=== PATIENT | male | born 1985 ===

== ENCOUNTER 2023-01-12 18:35 | Emergency (ER) | payer OTHER, SELFPAY ==
[2023-01-12 18:43] VITALS: BP 179/108; PULSE 80; RESP 18; TEMP 36.4; O2SAT 99; BMI 35.9
[2023-01-12 19:23] LABS: Add Manual Diff / Slide Review NO; Basophils Absolute Auto 100 /uL (0-100); Basophils Percent Auto 0.7 % (0-2); Eosinophils Absolute Auto 300 /uL (0-450); Hematocrit 39.7 % (41-53); Hemoglobin 13.7 g/dL (13.5-17.5); Lymphocytes Absolute Auto 1300 /uL (1100-4500); Lymphocytes Percent Auto 13.6 % (25-40); Mean Corpuscular HGB Conc 34.6 % (30-36); Mean Corpuscular Hemoglobin 32.5 PG (26-34); Monocytes Absolute Auto 1100 /uL (0-900); Monocytes Percent Auto 11.5 % (3-14); Neutrophils Absolute Auto 7000 /uL (1500-7000); Neutrophils Percent Auto 71.2 % (50-75); Platelet Count 227 X10^3/uL (150-400); Red Blood Cell Count 4.22 X10^6/uL (4.5-5.9); Red Cell Distribution Width 12.6 % (11.6-14.8); White Blood Cell Count 9.8 X10^3/uL (4.5-11.0)
[2023-01-12 19:37] LABS: Alanine Aminotransferase 53 IU/L (<50); Albumin 4.7 g/dL (3.5-5.0); Albumin Globulin Ratio 1.3 (1.0-2.8); Alkaline Phosphatase 56 U/L (38-126); Aspartate Aminotransferase 31 IU/L (17-59); BUN Creatinine Ratio 20.9 (6-22); Bilirubin Total 0.7 mg/dL (0.2-1.3); Blood Urea Nitrogen 18 mg/dL (9-20); Carbon Dioxide 25 mmol/L (22-32); Chloride 100 mmol/L (98-107); Estimated Glomerular Filt Rate > 60 mL/min (>60); Globulin 3.6 g/dL (1.7-4.1); Glucose 103 mg/dL (70-100); HEMOLYSIS < 15 (0-50); Lipase 57 U/L (23-300); Potassium 3.9 mmol/L (3.4-5.1); Sodium 137 mmol/L (137-145); Total Protein 8.3 g/dL (6.3-8.2)
[2023-01-12 19:50] LABS: Bacteria Urine None Seen; Culture Indicated Urine Cult Not Indicated; Mucus Urine 2+ (Negative); RBC Urine 0-1/HPF (0-5/HPF); Squamous Epithelial Cell Urine 0-1 /HPF (0-5/HPF); WBC Urine 0-1/HPF (0-5/HPF)
--- NOTE | 2023-01-12 19:58 | ED.ABDPAIN ---
HPI - Abdominal Pain General Chief Complaint: Abdominal Pain Stated Complaint: abd pain, ? mass/lump suprapubic Time Seen by Provider: 01/12/23 19:51 History of Present Illness HPI narrative: Patient is a 37-year-old healthy male who presents today with lower abdominal pain. He reports that he is had some loose stool for the past 3-4 days. He is had about 6 episodes are formed but very loose. None bloody. No nausea or vomiting. He reports lower abdominal pain. He denies any fever or chills. He was sent here from his PCP wanting a CT. No fever or chills. Related Data Previous Rx's Medication Instructions Recorded acetaminophen 300 mg-codeine 15 mg 1 tab PO SEE INSTRUCTIONS #30 tabs 07/07/16 tablet ciprofloxacin HCl 500 mg tablet 500 mg PO BID #14 tabs 01/12/23 (Cipro) metronidazole 500 mg tablet 500 mg PO Q8H 7 days #21 tabs 01/12/23 Allergies Allergy/AdvReac Type Severity Reaction Status Date / Time No Known Allergies Allergy Uncoded 06/23/17 12:43 Review of Systems Review of Systems ROS Unobtainable: All systems reviewed & are unremarkable except as noted in HPI and below Patient History Social History Smoking Status: Never smoker Smoking Status: Never smoker alcohol intake frequency: a few times a week Alcohol type: hard liquor Substance Use Type: does not use Exam Initial Vital Signs Initial Vital Signs: Vital Signs Temperature 97.6 F 01/12/23 18:43 Pulse Rate 80 01/12/23 18:43 Respiratory Rate 18 01/12/23 18:43 Blood Pressure 179/108 H 01/12/23 18:43 Pulse Oximetry 99 01/12/23 18:43 Oxygen Delivery Method Room Air 01/12/23 18:43 GENERAL: Well-appearing, well-nourished and in no acute distress. HEENT: Head atraumatic,EOMI, pupils reactive, face symmetric, moist mucous membranes CARDIOVASCULAR: Regular rate and rhythm without murmurs, rubs or gallops. RESPIRATORY: Breath sounds equal bilaterally, no wheezes rales or rhonchi. ABDOMEN: Soft, nontender. Mild lower abdominal tenderness no significant right-sided pain it is more suprapubic EXTREMITIES: Normal range of motion, no clubbing or edema. Neurovascularly intact NEUROLOGICAL: Alert and oriented x4.Normal gait and speech. Cranial nerves II through XII grossly intact. SKIN: Warm, dry, no laceration, no petechiae, no rashes or lesions. Course Orders Ordered: ED Orders 01/12/23 19:05 Complete Blood Count AUTO DIFF Stat Comprehensive Metabolic Panel Stat Lipase Stat 01/12/23 19:26 Urine Microscopic Stat 01/12/23 19:58 CT abdomen pelvis w con Stat Discontinued Medications Ciprofloxacin (Ciprofloxacin 250 Mg Tablet) 500 mg PO NOW ONE Stop: 01/12/23 21:21 Last Admin: 01/12/23 21:26 Dose: 500 mg Documented By: CHAI Sodium Chloride (Normal Saline 0.9%) 1,000 mls @ 1,000 mls/hr IV BOLUS ONE Stop: 01/12/23 20:57 Last Infusion: 01/12/23 21:29 Dose: Infused Documented By: Admin: 01/12/23 20:49 Dose: 1,000 mls/hr Documented By: CHAI Metronidazole (Metronidazole 500 Mg Tablet) 500 mg PO NOW ONE Stop: 01/12/23 21:21 Last Admin: 01/12/23 21:26 Dose: 500 mg Documented By: CHAI Ondansetron HCl (Ondansetron 4 Mg Odt) 4 mg PO NOW PRN PRN Reason: Nausea And Vomiting Ondansetron HCl (Ondansetron 4 Mg/2 Ml Inj) 4 mg IV NOW PRN PRN Reason: Nausea And Vomiting Vital Signs Vital signs: Vital Signs - 8 hr 01/12/23 18:43 01/12/23 21:28 01/12/23 21:29 Temperature 97.6 F Pulse Rate 80 Respiratory Rate 18 18 Blood Pressure 179/108 H 165/93 H Pulse Oximetry 99 92 Oxygen Delivery Method Room Air Room Air MDM - Abdominal Pain Lab Data 01/12/23 19:05 01/12/23 19:05 Labs: Lab Results 01/12/23 01/12/23 Range/Units 19:05 19:26 WBC 9.8 (4.5-11.0) X10^3/uL RBC 4.22 L (4.5-5.9) X10^6/uL Hgb 13.7 (13.5-17.5) g/dL Hct 39.7 L (41-53) % MCV 94.0 (80-100) fL MCH 32.5 (26-34) PG MCHC 34.6 (30-36) % RDW 12.6 (11.6-14.8) % Plt Count 227 (150-400) X10^3/uL Neut % (Auto) 71.2 (50-75) % Lymph % (Auto) 13.6 L (25-40) % [place] % (Auto) 11.5 (3-14) % Eos % (Auto) 3.0 (2-4) % Baso % (Auto) 0.7 (0-2) % Neut # (Auto) 7000 (8575-1165) /uL Lymph # (Auto) 1300 (0175-5340) /uL [place] # (Auto) 1100 H (0-900) /uL Eos # (Auto) 300 (0-450) /uL Baso # (Auto) 100 (0-100) /uL Sodium 137 (137-145) mmol/L Potassium 3.9 (3.4-5.1) mmol/L Chloride 100 (98-107) mmol/L Carbon Dioxide 25 (22-32) mmol/L BUN 18 (9-20) mg/dL Creatinine 0.86 (0.66-1.25) mg/dL Estimated GFR > 60 (>60) mL/min BUN/Creatinine Ratio 20.9 (6-22) Glucose 103 H (70-100) mg/dL Calcium 10.0 (8.4-10.2) mg/dL Total Bilirubin 0.7 (0.2-1.3) mg/dL AST 31 (17-59) IU/L ALT 53 H (<50) IU/L Alkaline Phosphatase 56 (38-126) U/L Total Protein 8.3 H (6.3-8.2) g/dL Albumin 4.7 (3.5-5.0) g/dL Globulin 3.6 (1.7-4.1) g/dL Albumin/Globulin Ratio 1.3 (1.0-2.8) Lipase 57 (23-300) U/L Urine RBC 0-1/hpf (0-5/HPF) Urine WBC 0-1/hpf (0-5/HPF) Ur Squamous Epith Cells 0-1 /hpf (0-5/HPF) Urine Bacteria None seen (None) Urine Mucus 2+ H (Negative) Ur Culture Indicated? Cult not indicated Point of care testing: Urine Dip Bedside Urine Glucose Negative Bedside Urine Bilirubin - Negative Bedside Urine Ketone ++ 40 Urine Specific [place] 1.030 Bedside Urine Occult Blood - Negative Bedside Urine pH 6.0 Bedside Urine Protein +/- 15 Bedside Urine Urobilinogen - Negative Bedside Urine Nitrite - Negative Bedside Urine Leukocytes - Negative Esterase Imaging Data CT scan - abdomen/pelvis: Radiologist's Impression: PROCEDURE: CT ABDOMEN PELVIS W CON INDICATIONS: lower ab pain x 4 days TECHNIQUE: After the administration of oral and IV contrast, axial sections were acquired from the lung bases to the pubic symphysis. Coronal and sagittal reformats were performed. For radiation dose reduction, the following was used: automated exposure control, adjustment of mA and/or kV according to patient size. COMPARISON: None. FINDINGS: Image quality: Excellent. Lung bases: Unremarkable. Heart: No significant findings. ABDOMEN: Liver: Normal size. Moderate hepatic steatosis. Gallbladder: Unremarkable. Biliary ducts: Unremarkable. Pancreas: Unremarkable. Spleen: Unremarkable. Adrenal Glands: Unremarkable. Kidneys and Ureters: Unremarkable. Stomach and Bowel: There are multiple colonic diverticula. There is focal thickening and pericolonic stranding involving the distal descending colon/proximal sigmoid colon, compatible with acute diverticulitis. Appendix is mildly enlarged measuring up to 9.3 mm in diameter. There is no significant stranding around the appendix. Stomach, small bowel loops, and colon are unremarkable. Peritoneum: No abnormal intraperitoneal fluid. No free air. Ventral Wall: No hernia. Abdominal Nodes: No retroperitoneal or mesenteric adenopathy by size criteria. Vessels: Aorta and inferior vena cava are normal in size. PELVIS: Pelvic Organs: Unremarkable. Bladder: Unremarkable. Pelvic Nodes: No enlarged lymph nodes. Miscellaneous: No inguinal hernias are seen. Bones: Unremarkable. IMPRESSION: 1. Colonic diverticulosis. There is focal thickening and pericolonic stranding involving the distal descending colon/proximal sigmoid colon, consistent with acute diverticulitis. There is no diverticular perforation or abscess. 2. Appendix is slightly enlarged in caliber measuring 9.3 mm (normal caliber equal or less than 7 mm), but no definitive CT findings to suggest acute appendicitis. 3. Moderate hepatic steatosis. Dictated by: Lucie Borrego M.D. on 01/12/2023 at 20:44 MDM Narrative Medical decision making narrative: Patient 37-year-old male with ongoing diarrhea for the past couple of days with increasing suprapubic abdominal pain. He does not have any leukocytosis or electrolyte abnormality. CT confirms non complicated diverticulitis. He is given his 1st dose of Cipro and Flagyl in the ED. he is not requiring anything for pain. He received a L of fluid overall feeling a lot better. Discussed warning signs and treatment at home. Discharge Plan Departure Patient Disposition: Home Clinical Impression: Diverticulitis Instructions: DI for Diverticulitis Activity Restrictions/Additional Instructions: *You have been diagnosed with diverticulitis *What to do: At this time I recommend low-fiber diet while your intestine heels however afterwards you will need high-fiber *Continue to take medications as directed Cipro 500 mg twice a day for 7 Flagyl 500 mg 3 times a day for 7 days *Follow up with your primary care provider in 2-3 days or call [phone] *Return to ER if you should have increasing abdominal pain fever bloody stool or any new, worsening or concerning symptoms Prescriptions: New metronidazole 500 mg tablet 500 mg PO Q8H 7 Days Qty: 21 0RF ciprofloxacin HCl [Cipro] 500 mg tablet 500 mg PO BID Qty: 14 0RF No Action acetaminophen-codeine 15 MG/300 MG tablet 1 tab PO SEE INSTRUCTIONS Qty: 30 0RF Referrals: Madi Hernandez MD [Primary Care Provider] - Stand Alone Forms: Patient Portal/API
[2023-01-12] MEDS: SODIUM CHLORIDE 0.9% 1,000 ML 1000 ML IV (20:49)
[2023-01-12] MEDS: metroNIDAZOLE 500 MG TABLET PO (21:26)
[2023-01-12] MEDS: CIPROFLOXACIN 250 MG TABLET 500 MG PO (21:26)
[2023-01-12 21:28] VITALS: RESP 18; O2SAT 92
[2023-01-12 21:29] VITALS: BP 165/93
== END 2023-01-12 21:36 | disposition home or self-care (01) ==
PROVIDERS: Emergency Provider Emergency Medicine; PCP Family Medicine
DX: K57.92 Diverticulitis of intestine, part unspecified, without perforation or abscess without bleeding (principal)
CPT/HCPCS: 74177; 80053; 81003; 81015; 83690; 85025; 96360; 99284; Q9967